=== PATIENT | female | born 1960 | race Caucasian/White ===

== ENCOUNTER 2024-09-18 09:33 | Emergency (ER) | payer BC, SELFPAY ==
[2024-09-18 09:42] VITALS: BP 156/87
--- NOTE | 2024-09-18 09:58 | ED.GENMED ---
History of Present Illness
General
Chief Complaint: Chest Pain
Source: patient
Exam Limitations: none
Time Seen by Provider: 09/18/24 09:49
History of Present Illness
History of Present Illness:
See MDM
Past History
Past History
ED Past Medical History: Other (herniated disc, Neck pain, )
ED Past Surgical History:
Social History
Tobacco: Non-smoker
Alcohol: Occasional
Drug: None
Personal:
Living: with family
Phy Exam
Physical Exam
Physical Exam:
See MDM
Scores
Heart Score for Chest Pain Patients
STEMI patient?: No
History: Slightly or Non-Suspicious
ECG: Normal
Age: >45 - <65 years
Risk Factors: 1 or 2 Risk Factors
Troponin: </= Normal Limit
Heart Score for Chest Pain Patients: 2
Heart Score Risk: 2.5% MACE over next 6 weeks
Course
Orders/Labs/Results
Orders:
Orders
09/18/24 09:34
ECG [Electrocardiogram (*1)] Urgent
Reason for Study: Chest Pain
EKG- Treatment ONCE
09/18/24 09:57
CR Chest - 2 Views Urgent
Comment:
Reason For Exam: left side chest pain
09/18/24 10:02
Complete Blood Count/With Diff Urgent
Comprehensive Metabolic Panel Urgent
NT-proBNP Urgent
Comment: ADD ON
Troponin I Urgent
09/18/24 11:51
Add On- LAB Urgent
Tests Added?: pro-bnp
Abnormal Lab Results
09/18/24
10:02
MCH 31.6 H pg
(27.0-31.0)
MPV 13.5 H fL
(7.4-10.4)
Absolute Monos (auto) 0.7 H 10^3/uL
(0.1-0.6)
Monocytes % 9.8 H %
(1.7-9.3)
09/18/24 10:02
09/18/24 10:02
Vital Signs
Initial and Last Documented VS:
Initial Vital Signs
Temp Pulse Resp BP Pulse Ox
97.7 F 77 16 156/87 98
09/18/24 09:42 09/18/24 09:42 09/18/24 09:42 09/18/24 09:42 09/18/24 09:42
Last Documented Vital Signs
Temp Pulse Resp BP Pulse Ox
97.7 F 77 18 153/79 96
09/18/24 09:42 09/18/24 12:30 09/18/24 12:30 09/18/24 12:00 09/18/24 10:50
MDM/Problems Addressed
Differential Diagnosis Includes:
HPI and MDM Narrative:
63-year-old female presenting for evaluation of left-sided chest and shoulder pain. This was preceded by a coughing fit several days ago. Since then, the muscle strain and rib pain have resolved but she still has a dull pain that appears to be
unrelated to exertion or food intake. EKG done at PCP office was normal but she was sent in for further workup to rule out cardiac cause.
On exam, she is very well-appearing and nontoxic. Lungs clear. Heart regular rate and rhythm. No leg edema or tenderness. We discussed likely strain of her intercostal musculature but will obtain troponin and chest x-ray
Physical exam
General: Well appearing and non-toxic
HEENT: protecting airway
Neck: appears supple
CV: No evidence of cyanosis. Regular rate and rhythm
Resp: No accessory muscle use. Lungs clear
Abd: Non-distended
Extremities: No deformities. No tenderness to deep venous palpation in both legs
Neuro: alert
Psych: Normal affect
Skin: Intact
Problems Addressed including Acute and Chronic Conditions affecting care:
1. Chest pain
Acuity: acute
Prognosis: stable
Details: Given duration of symptoms that is nonexertional, will obtain 1 troponin and chest x-ray
Updates
The chest x-ray showed concern for mild cardiomegaly and questionable pulmonary edema but she denies shortness of breath. Troponin negative. BNP was added which was also normal. Will refer to cardiology. Patient otherwise stable to go home
Differential Diagnosis (but not limited to): Muscle strain, pneumothorax, ACS
Testing considered: D-dimer but she is neither tachycardic nor hypoxic
Drug therapy (if applicable): OTC meds, please see d/c instruction regarding Rx drugs
Amount and/or Complexity of Data Reviewed
Clinical info obtained from: Patient
External data reviewed: N/A
Labs I independently reviewed (but not limited to): Troponin and BNP negative
Radiology: X-ray independently reviewed: Chest x-ray with mild cardiomegaly. No pneumothorax
Pulse Ox: not hypoxic
EKG independently reviewed: Sinus rhythm, normal axis, no STEMI
Weight Count Operator: Sinus rhythm
Critical Care: N/A
Risk of Complication:
Social Determinants of health: Good social support
Discussed with other providers: N/A
Escalation of Care includes Admit/Obs: After being observed in the Emergency Department, pt stable for discharge.
Occasional wrong word or 'sound a like' substitutions may have occurred due to the inherent limitations of voice recognition software. Read the chart carefully and recognize, using context, where substitutions have occurred.
*Critical Care Note
Total Time (30-74mins, 75-104mins- exclusive of procedures): Not Applicable
ED Attending Note
-
Portions of this chart may have been created with voice recognition software.� Occasional wrong word or��sound alike� substitutions may have occurred due to the inherent limitations of voice recognition software.
Discharge Plan
Departure
Patient Disposition: Home (Routine Discharge)
Date of Disposition: 09/18/24
Time of Disposition: 13:00
Patient with high blood pressure during this ER visit?: Yes
Discharge Problem:
Chest pain
Instructions: Chest Pain That Is Not Caused by the Heart (DC), Chest Pain DCA Follow Up, BLOOD PRESSURE
Prescriptions:
No Action
pantoprazole [Protonix] 40 mg tablet,delayed release (DR/EC)
40 mg PO DAILY Qty: 30 0RF
azithromycin [Zithromax] 250 mg tablet
250 mg PO DAILY Qty: 4 0RF
Referrals:
Aimee Cedeño MD [Family Provider] -
Hussian Burton MD [Active] -
Activity Restrictions/Additional Instructions:
Please return for any worsening symptoms.
You may return at any time if you have further concerns.
Please follow up with your doctor at the first available appointment, preferably this week.
You were placed on the cardiac callback tracker. Someone from their office should call you in the next few days. If you do not hear from them in the next few days, please give them a call.
Thank you for choosing [facility].
Interventions
Interventions:
*Risk Screen - Suicide Last Done: 09/18/24 09:42
*Neglect/Abuse Screening Last Done: 09/18/24 09:42
ED- Fall Risk Assessment Last Done: 09/18/24 10:07
*ED COVID-19 Vaccine History Last Done: 09/18/24 10:07
ED- Cardiac Assessment Last Done: 09/18/24 10:07
Discharge Date and Time
Print Language: GERMAN
[2024-09-18 10:06] VITALS: BP 130/68
[2024-09-18 10:19] LABS: % Basophils 0.4 % (0-2); % Eosinophils 0.9 % (0-6); % Immature Granulocytes 0.1 % (0-0.5); % Lymphocytes 20.7 % (20.5-51.1); % Monocytes 9.8 % (1.7-9.3); % Neutrophils 68.1 % (42.2-75.2); Absolute Eosinophils 0.1 10^3/uL (0-0.7); Absolute Lymphocytes 1.4 10^3/uL (1.2-3.4); Absolute Monocytes 0.7 10^3/uL (0.1-0.6); Absolute Neutrophils 4.7 10^3/uL (1.4-6.5); Hematocrit 40.2 % (37.0-47.0); Hemoglobin 13.9 g/dL (12.0-16.0); Mean Corp Hgb Conc. 34.6 g/dL (33.0-37.0); Mean Corpuscular Hgb 31.6 pg (27.0-31.0); Mean Corpuscular Volume 91.4 fL (81.0-99.0); Mean Platelet Volume 13.5 fL (7.4-10.4); Nucleated Red Blood Cells % 0 %; Platelet Count 181 10^3/uL (130-400); Red Cell Dist. Width 12.2 % (11.5-14.5); White Blood Cell Count 6.9 10^3/uL (4.8-10.8)
[2024-09-18 10:27] LABS: ALT (SGPT) 17 U/L (0-35); AST (SGOT) 27 U/L (14-36); Albumin 4.5 g/dl (3.5-5.0); Alkaline Phosphatase 92 U/L (38-126); Blood Urea Nitrogen 15 mg/dl (7-17); Calcium 9.8 mg/dl (8.4-10.2); Carbon Dioxide 25 mmol/L (22-30); Chloride 103 mmol/L (98-107); Glucose 98 mg/dl (70-99); Potassium 4.3 mmol/L (3.5-5.1); Sodium 139 mmol/L (135-145); Total Bilirubin 0.6 mg/dl (0.2-1.3); eGFR > 60.00
[2024-09-18 10:37] LABS: Troponin I < 0.012 ng/ml
[2024-09-18 11:03] VITALS: BP 153/82
[2024-09-18 12:00] VITALS: BP 153/79
[2024-09-18 12:35] LABS: NT-proBNP 116 pg/ml
== END 2024-09-18 13:26 | disposition home or self-care (01) ==
LOC: EMR 09:33
PROVIDERS: EMERGENCY PHYSICIAN Student in an Organized Health Care Education/Training Program; FAMILY PHYSICIAN Emergency Medicine
DX: R07.89 Other chest pain (principal); I51.7 Cardiomegaly
CPT/HCPCS: 99285; 71046; 80053; 83880; 84484; 85025; 93005

== ENCOUNTER → 2024-09-29 11:21 | Outpatient (REF) | payer BC, SELFPAY | LOC: RCS 11:21 | PROVIDERS: ATTENDING PHYSICIAN Internal Medicine Cardiovascular Disease; FAMILY PHYSICIAN Emergency Medicine | DX: R06.09 Other forms of dyspnea (principal) | CPT/HCPCS: 93306 ==

== ENCOUNTER → 2024-10-14 12:47 | Outpatient (REF) | payer BC, SELFPAY | LOC: RCS 12:47 | PROVIDERS: ATTENDING PHYSICIAN Internal Medicine Cardiovascular Disease; FAMILY PHYSICIAN Emergency Medicine | DX: R06.09 Other forms of dyspnea (principal) | CPT/HCPCS: 93017; 93350 ==